=== PATIENT | male | born 1995 | race Caucasian/White ===

== ENCOUNTER 2020-08-08 07:14 | Day surgery (SDC) | payer OTHER, SELFPAY ==
[2020-08-08] MEDS: Lactated Ringers 1,000 ML 60 ML IV (07:25)
[2020-08-08 07:42] VITALS: BP 134/66; PULSE 67; RESP 16; TEMP 36.8; O2SAT 98; BMI 25.4
--- NOTE | 2020-08-08 08:28 | PCM.DC ---
Discharge Instructions Diet Discharge Diet: No restrictions Activity Discharge Activity: Return to Normal Activity Lifting Restrictions: No strenuous activity Additional Activity Instructions:: No nose blowing. Start the antibiotic tonight. Start saline nasal spray 2-3 sprays each nostril 3x/day on 08/09/20 Follow Up Care Please Follow Up With: Anuel Almeida MD When: 8 days Test Results: Test results from this visit will be discussed in further detail at your follow-up appointment, if applicable. Discharge Plan Admission Attending Provider: Anuel Almeida Primary Care Provider: Bere Avery Discharge Orders/Prescriptions Prescriptions: No Action NK RF: 0 Disposition Discharge Orders: Discharge Patient (Routine); Ordered 08/08/20 Ordered By: Dr. Anuel Almeida
[2020-08-08] MEDS: Oxymetazoline 0.05% 1 SPRAY SPRAY.BTL 15 SPRAY (08:36)
[2020-08-08] MEDS: Lidocaine 1% /Epi 1:100 (20ml) 20 ML Vial (08:36)
--- NOTE | 2020-08-08 08:45 | NASAL_PTH ---
PATIENT: ANISA NICOLE LOC: [facility] – [place] U#:[id number] AGE/SX: 25/M ROOM: RE08/08/[address]: Dr. Anuel Almeida MD : 1995 BED: DIS: 08/08/2020 SPEC #: [id number] RECD: 08/08/20 10:42 STATUS: LINDA REQ #: [id number] JOSELIN: 08/08/20 08:[address]: Anuel Almeida DEPT: SURGICAL PATHOLOGY RECD BY: Ana Posey ENTERED: 08/08/20 12:11 SP TYPE: NASAL SPEC OTHR DR: Dr. Bere Avery MD Tissues: Nasal septum, NOS Procedures: Decalcification bone/plaque Surgery Specimen Level III HEADER OPERATION: Septoplasty, resection inferior turbinates PRE-OP DIAGNOSIS: Nasal congestion; deviated septum; hypertrophy of nasal turbinates TISSUE SUBMITTED: Nasal septum MICROSCOPIC DIAGNOSIS Nasal septum, septoplasty: Fragments of hyaline cartilage and bone with mild reactive change (clinically deviated septum). AM:chris 08/11/2020 MICROSCOPIC DESCRIPTION Slides are reviewed. GROSS DESCRIPTION Received in fixative is one container labeled with the patient's name and designated nasal septum. The specimen consists of multiple irregular fragments of cartilage and bone that in aggregate measure 3 x 3 x 0.5 cm. Juvenile Counselor tissue is submitted in one cassette after decalcification. / SJ:chris 08/08/20 TC:5 CPT: 42385, 84662
[2020-08-08] MEDS: Bacitracin 500 UNITS/GM PACKET (09:26)
--- NOTE | 2020-08-08 10:23 | OP.PCM_ITS ---
Report of Operation Date of Procedure: 08/08/20 Pre-Operative Diagnosis: nasal airway obstruction deviated nasal septum inferior turbinate hypertrophy Post-Operative Diagnosis: same Surgery/Procedure Performed:: Septoplasty Submucous resection inferior turbinates bilaterally Surgeon: Anuel Almeida Type of Anesthesia: General Anesthesiologist: anitra Description of Procedure: The patient was taken to the operating room on 08/08/20. He was placed in supine position on the operating table. He was given sufficient general endotracheal anesthesia. The table was elevated 30 degrees. The nose was draped sterilely. 1% lidocaine with epinephrine was injected into the septum nasal floor anterior aspect of the inferior turbinates bilaterally. Nasal hair was trimmed with the scissors and removed. A right hemitransfixion incision was made with a 15 blade. Barbara Judge the mucoperichondrial was elevated off of the left-hand side of the septum with a Blue Diamond elevator. An anterior and posterior tunnel were created in this fashion. The bony cartilaginous junction was with a Blue Diamond elevator. A posterior tunnel was created on the right side developed by elevating the mucoperichondrial with a Blue Diamond. The deviated portions of bony septum removed using open Brian-Goran forceps. Next I established a plane on the right-hand side of the quadrangular cartilage as it was completely deviated into the right nasal cavity. I left a superior and anterior cartilage strip of 1.5 cm however the rest the deviated portion of the quadrangular cartilage that was in contact witht he right inferior turbinate was excised. The maxillary crest was removed with a hammer and chisel. Afrin was used for hemostasis as well as Montez powder. Next, an incision was placed anterior aspect of the right inferior turbinate at the mucocutaneous junction. A submucous plane established with a caudal elevator. Submucous resection was carried out using a microdebrider. Afrin pledgets were used for hemostasis. The septal flap on the right side was re approximated and tacked together with 4-0 chromic. The incision was then closed with 4-0 chromic. Then, an incision was placed at the anterior aspect of the left inferior turbinate at the mucocutaneous junction. A submucous plane established using a caudal elevator. Submucous resection was carried out using a microdebrider. The incision was then closed with 4-0 chromic. Afrin and Montez were used for hemostasis. The hemitransfixion incision was closed with 4-0 chromic. Ellis nasal splints were applied to each side of the septum and sewn through and through with 3-0 silk. The patient was then awoken and brought to the recovery room in stable condition. Blood loss minimal, replacement none. Sponge, needle count, sponge count, were correct at the end of this procedure.
[2020-08-08 10:34] VITALS: BP 134/66; BP 139/90; PULSE 76; RESP 14; TEMP 36; O2SAT 94
[2020-08-08 10:45] VITALS: BP 131/83; BP 134/66; PULSE 73; RESP 16; O2SAT 96
[2020-08-08 11:00] VITALS: BP 134/66; BP 134/86; PULSE 77; RESP 16; O2SAT 77
[2020-08-08 11:12] VITALS: BP 134/66; BP 138/83; PULSE 65; RESP 16; TEMP 36.2; O2SAT 98
[2020-08-08 12:16] VITALS: BP 134/66; BP 143/87; PULSE 67; RESP 16; TEMP 36.7; O2SAT 100
== END 2020-08-08 12:24 | disposition home or self-care (01) ==
LOC: SDC 07:16 → AC 07:17
PROVIDERS: PCP Family Medicine; Referring Provider Otolaryngology; Visit Provider Otolaryngology
PROC: (CPT 30520; principal; 2020-08-08 08:30)
DX: J34.2 Deviated nasal septum (principal); J34.3 Hypertrophy of nasal turbinates; R09.81 Nasal congestion
CPT/HCPCS: 00160; 30140; 30520; 88304; 88311; J2405